=== PATIENT | male | born 1990 | race Asian ===

== ENCOUNTER 2017-09-23 19:47 | Emergency (ER) | payer BC ==
[2017-09-23] MEDS ORDERED: Lorazepam 2 MG/ML VIAL ONE (20:37)
[2017-09-23 20:49] LABS: #Basophils 0.1 thou/uL (0.0-0.2); #Eosinphils 0.3 thou/uL (0.0-0.7); #Lymphocytes 1.6 thou/uL (1.20-3.40); #Monocytes 0.6 thou/uL (0.11-0.59); #Neutrophils 5.5 thou/uL (1.40-6.50); %Basophils 0.8 % (0.0-1.0); %Eosinophils 3.3 % (0.0-10.0); %Lymphocytes 19.9 % (21.0-51.0); %Monocytes 7.4 % (0.0-10.0); Hematocrit 42.9 % (42.0-52.0); Mean Platelet Volume 7.1 fL (7.4-10.4); White Blood Cell (WBC) Count 7.9 thou/uL (4.8-10.8)
[2017-09-23 21:09] LABS: Lactic Acid - Sepsis 2.2 mmol/L (0.5-2.2)
[2017-09-23 21:12] LABS: ALT (SGPT) 17 U/L (8-55); AST (SGOT) 20 U/L (5-34); Acetaminophen Less than 6.0 mcg/mL (10.0-30.0); Alkaline Phosphatase 78 U/L (40-150); Anion Gap 15 mmol/L (10-20); BUN (Urea Nitrogen) 10 mg/dL (8.9-20.6); Bilirubin, Total 0.5 mg/dL (0.2-1.2); Calc. Creatinine Clearance 0 mL/min (70-130); Calcium 9.3 mg/dL (7.8-10.44); Carbon Dioxide 23 mmol/L (22-29); Chloride 103 mmol/L (98-107); Estimated GFR-MDRD Greater than 90; Globulin 2.9 g/dL (2.4-3.5); Protein, Total 7.2 g/dL (6.0-8.3); Salicylate Less than 8.0 mg/dL (15.0-30.0)
[2017-09-23 21:34] LABS: Bilirubin Negative (Negative); Blood, Urine Negative (Negative); Glucose, Urine (Dipstick) Negative (Negative); Ketone, Urine Negative (Negative); Nitrite Negative (Negative); Protein, Urine (Dipstick) Negative (Neg-Trace); Urobilinogen 0.2 mg/dL (0.2-1.0)
[2017-09-23 21:43] LABS: Amphetamine Not Detected (NotDetected); Methadone Not Detected (NotDetected); Methamphetamine Not Detected (NotDetected)
== END 2017-09-23 22:44 | disposition home or self-care (01) ==
LOC: ERS 19:47
DX: R45.1 Restlessness and agitation (principal); T44.3X5A Adverse effect of other parasympatholytics [anticholinergics and antimuscarinics] and spasmolytics, initial encounter
CPT/HCPCS: 36415; 80053; 80306; 80307; 81003; 82550; 83605; 84443; 85025; 93005; 94760; 96361; 96374; J2060

== ENCOUNTER 2017-09-24 15:47 | Emergency (ER) | payer BC, SELFPAY ==
[2017-09-24] MEDS ORDERED: diphenhydrAMINE 50 MG/ML VIAL ONE (16:23)
[2017-09-24 16:38] LABS: #Eosinphils 0.2 thou/uL (0.0-0.7); #Lymphocytes 1.8 thou/uL (1.20-3.40); #Monocytes 0.6 thou/uL (0.11-0.59); #Neutrophils 4.9 thou/uL (1.40-6.50); %Basophils 0.5 % (0.0-1.0); %Eosinophils 2.6 % (0.0-10.0); %Lymphocytes 23.6 % (21.0-51.0); %Monocytes 7.9 % (0.0-10.0); Hematocrit 42.5 % (42.0-52.0); Mean Platelet Volume 6.7 fL (7.4-10.4); Red Blood Cell (RBC) Count 4.37 mill/uL (4.70-6.10); White Blood Cell (WBC) Count 7.5 thou/uL (4.8-10.8)
[2017-09-24] MEDS ORDERED: Lorazepam 2 MG/ML VIAL ONE (16:52)
[2017-09-24 17:04] LABS: Anion Gap 15 mmol/L (10-20); BUN (Urea Nitrogen) 8 mg/dL (8.9-20.6); CK (CPK) 108 U/L (30-200); Calc. Creatinine Clearance 0 mL/min (70-130); Calcium 9.7 mg/dL (7.8-10.44); Carbon Dioxide 25 mmol/L (22-29); Chloride 102 mmol/L (98-107); Estimated GFR-MDRD Greater than 90
== END 2017-09-24 18:23 | disposition home or self-care (01) ==
LOC: ERS 15:47
DX: K14.8 Other diseases of tongue (principal); T43.4X5A Adverse effect of butyrophenone and thiothixene neuroleptics, initial encounter; F20.9 Schizophrenia, unspecified; Z79.899 Other long term (current) drug therapy
CPT/HCPCS: 36415; 80048; 82550; 85025; 96361; 96374; 96375; J1200; J2060

== ENCOUNTER 2017-10-14 13:07 | Emergency (ER) | payer BC, SELFPAY | END 2017-10-14 14:53 | disposition home or self-care (01) | LOC: ERS 13:07 | DX: G24.09 Other drug induced dystonia (principal); T43.595A Adverse effect of other antipsychotics and neuroleptics, initial encounter; Z79.899 Other long term (current) drug therapy | CPT/HCPCS: 99284 ==

== ENCOUNTER 2017-10-14 18:06 | Emergency (ER) | payer SELFPAY ==
[2017-10-14] MEDS ORDERED: Lorazepam 2 MG/ML VIAL ONE (18:19)
== END 2017-10-14 18:44 | disposition home or self-care (01) ==
LOC: ERS 18:06
DX: G24.9 Dystonia, unspecified (principal); F20.9 Schizophrenia, unspecified; Z79.899 Other long term (current) drug therapy
CPT/HCPCS: 96372; J2060